=== PATIENT | female | born 1960 | race Caucasian/White ===

== ENCOUNTER 2016-06-23 13:18 | Emergency (ER) | payer MEDICAID ==
[2016-06-23] MEDS ORDERED: PHENAZOPYRIDINE 100 MG TABLET PO STA (14:08)
[2016-06-23] MEDS ORDERED: SULFAMETH/TRIMETH DS 800/160 MG TABLET PO STA (14:08)
[2016-06-23] MEDS ORDERED: PHENAZOPYRIDINE 100 MG TABLET PO ONE (14:12)
[2016-06-23] MEDS ORDERED: SULFAMETH/TRIMETH DS 800/160 MG TABLET PO ONE (14:12)
== END 2016-06-23 14:42 | disposition home or self-care (01) ==
DX: N30.00 Acute cystitis without hematuria (principal)
CPT/HCPCS: 51798; 81001; 87077; 87086; 87181; 99283; A9270

== ENCOUNTER 2017-10-11 15:29 | Outpatient (CLI) | payer MEDICAID | END 2017-10-11 15:30 | disposition critical access hospital (66) | LOC: EMS 15:29 | PROVIDERS: ATTEND Surgery | DX: S69.91XA Unspecified injury of right wrist, hand and finger(s), initial encounter (principal); S99.922A Unspecified injury of left foot, initial encounter; S81.011A Laceration without foreign body, right knee, initial encounter; W18.30XA Fall on same level, unspecified, initial encounter; Y93.01 Activity, walking, marching and hiking; Y92.838 Other recreation area as the place of occurrence of the external cause | CPT/HCPCS: A0425; A0429; A0999 ==

== ENCOUNTER 2017-10-11 16:17 | Emergency (ER) | payer MEDICAID ==
--- NOTE | 2017-10-11 17:03 | ED Physician Documentation ---
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 - Present Medications Home Medications: Ambulatory Orders Medication Instructions Recorded Confirmed Phenazopyridine [Pyridium] 200 mg PO TID #15 tablet 06/23/16 Sulfamethoxazole/Trimethoprim 1 each PO BID #14 tablet 06/23/16 [Bactrim Ds Tablet] - Allergies Allergies/Adverse Reactions: Allergies Allergy/AdvReac Type Severity Reaction Status Date / Time No Known Drug Allergies Allergy Verified 06/23/16 13:22 - Social History Does the pt smoke?: No Smoking Status: Never smoker Does the pt drink ETOH?: Yes Does the pt have substance abuse?: Yes - Immunizations Immunizations are current?: Yes Results - Vitals Vitals: Vital Signs - 24 hr 10/11/17 16:18 Temperature 36.5 C Heart Rate 86 Respiratory 20 Rate Blood Pressure 150/107 H O2 Saturation 100 Oxygen O2 Source Room air PD MEDICAL DECISION MAKING - Sepsis Event Vital Signs: Vital Signs - 24 hr 10/11/17 16:18 Temperature 36.5 C Heart Rate 86 Respiratory 20 Rate Blood Pressure 150/107 H O2 Saturation 100 Oxygen O2 Source Room air
--- NOTE | 2017-10-11 17:04 | ED Physician Documentation ---
PD HPI Fall - Stated complaint Stated Complaint: FOOT INJURY - Chief complaint Chief Complaint: Ext Problem - History obtained from History obtained from: Patient - History of Present Illness Mechanism of injury: Tripped, Lost balance Fall distance: Standing position (she struck left foot and fell to the right. Pain left lateral foot. Pain right little finger. Laceration of right knee. Deneis injury to chest/abd/head/neck.) Timing - onset: Today Injury(ies) location: Right Upper Extremity (little finger pain), Right Lower Extremity (knee lac), Left Lower Extremity (lateral foot). No: Head, Face, Neck , Chest, Abdomen Associated symptoms: No: LOC, AMS, Neck pain, Weakness, Paresthesias, Nausea / vomiting Worsens with: Movement, Palpation Similar symptoms before: Has not had sx before Recently seen: Not recently seen Review of Systems Constitutional: denies: Fever Nose: denies: Rhinorrhea / runny nose, Congestion Throat: denies: Sore throat Cardiac: denies: Chest pain / pressure Respiratory: denies: Dyspnea, Cough GI: denies: Abdominal Pain, Vomiting, Diarrhea, Bloody / black stool Neurologic: denies: Generalized weakness, Focal weakness, Numbness, Altered mental status, Headache, Head injury PD PAST MEDICAL HISTORY - Past Medical History Past Medical History: No Cardiovascular: None Respiratory: None : None Musculoskeletal: Scoliosis - Past Surgical History Past Surgical History: Yes 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 - Present Medications Home Medications: Ambulatory Orders Medication Instructions Recorded Confirmed Phenazopyridine [Pyridium] 200 mg PO TID #15 tablet 06/23/16 Sulfamethoxazole/Trimethoprim 1 each PO BID #14 tablet 06/23/16 [Bactrim Ds Tablet] HYDROcod/ACETAM 5/325 [[place] 5/325] 1 tab PO Q6H PRN #25 tablet 10/11/17 Naproxen [Naprosyn] 500 mg PO BID PRN #20 tablet 10/11/17 - Allergies Allergies/Adverse Reactions: Allergies Allergy/AdvReac Type Severity Reaction Status Date / Time No Known Drug Allergies Allergy Verified 06/23/16 13:22 - Social History Does the pt smoke?: No Smoking Status: Never smoker Does the pt drink ETOH?: Yes Does the pt have substance abuse?: Yes - Immunizations Immunizations are current?: Yes PD ED PE NORMAL - Vitals Vital signs reviewed: Yes - General General: Alert and oriented X 3, No acute distress, Well developed/nourished - HEENT HEENT: Atraumatic - Neck Neck: Supple, no meningeal sign, No bony TTP, No adenopathy - Cardiac Cardiac: RRR, No murmur - Respiratory Respiratory: Clear bilaterally, Other (no chestwall tenderness) - Abdomen Abdomen: Soft, Non tender - Back Back: No CVA TTP, No spinal TTP - Derm Derm: Normal color, Warm and dry - Extremities Extremities: Other (left lateral foot with swelling and tenderness at 5th MT base area. Ankel malleoli not tender. Right little finger tender at the base. No gross deformity and she can flex/extend slightly against resistance with some pain, but tendons feel intact. Right knee with laceration and some dirt in it. Lac to fatty tissue. Edges bruised some. ) - Neuro Neuro: Alert and oriented X 3, No motor deficit, No sensory deficit, Normal speech Eye Opening: Spontaneous Motor: Obeys Commands Verbal: Oriented GCS Score: 15 Results - Vitals Vitals: Vital Signs - 24 hr // 16:18 18:50 Temperature 36.5 C 36.6 C Heart Rate 86 81 Respiratory 20 18 Rate Blood Pressure 150/107 H 168/89 H O2 Saturation 100 100 Oxygen O2 Source Room air - Rads (name of study) left foot Radiology: Prelim report reviewed (proximal 5th MT small fracture, nondisplaced. ) right hand Radiology: Prelim report reviewed (little finger proximal phalanx transverse fracture without displacemnt) Procedures - Laceration (location) right infraptellar area Length in cm: 3 Wound type: Flap (v-shaped), Into subcut fat, Contaminated Neurovascular status: Sensory intact, Motor intact, Vascular intact Tendon involvement: Tendon intact (good extension of knee and no bony tenderness. no effusion.) Anesthesia: Lidocaine 2%, Marcaine 0.5% with epi Wound Preparation: Irrigated copiously NS, To the base, FB identified, FB removed (dirt particles), Wound edges modified Skin layer closure: Nylon, Interrupted, Size #-0 - enter number (4) Other: Patient tolerated well, No complications, Neurovascular intact, Dressing applied, Tetanus UTD Complexity: Simple - Splint (location) right finger Splint applied by: Tech Type of splint: Ulnar gutter (short one to better stabilize the little finger, which hurt with any movement. Splint was applied good.) Other: Patient tolerated well, No complications PD MEDICAL DECISION MAKING - ED course Complexity details: considered differential (several injuries with the knee lac , proxim 5th MT fracture and finger fracture. ), d/w patient - Sepsis Event Vital Signs: Vital Signs - 24 hr 10/11/17 10/11/17 16:18 18:50 Temperature 36.5 C 36.6 C Heart Rate 86 81 Respiratory 20 18 Rate Blood Pressure 150/107 H 168/89 H O2 Saturation 100 100 Oxygen O2 Source Room air Departure - Departure Disposition: 01 Home, Self Care Clinical Impression: Accidental fall Qualifiers: Encounter type: initial encounter Qualified Code(s): W19.XXXA - Unspecified fall, initial encounter Knee laceration Qualifiers: Encounter type: initial encounter Laterality: right Qualified Code(s): S81.011A - Laceration without foreign body, right knee, initial encounter Fracture of phalanx of little finger Qualifiers: Encounter type: initial encounter Fracture type: closed Phalanx: proximal Fracture alignment: nondisplaced Laterality: right Qualified Code(s): S62.646A - Nondisplaced fracture of proximal phalanx of right little finger, initial encounter for closed fracture Metatarsal fracture Qualifiers: Encounter type: initial encounter Metatarsal bone: fifth Fracture type: closed Fracture alignment: nondisplaced Laterality: left Qualified Code(s): S92.355A - Nondisplaced fracture of fifth metatarsal bone, left foot, initial encounter for closed fracture Condition: Stable Record reviewed to determine appropriate education?: Yes Instructions: ED Fx Finger Closed, ED Fx Foot, ED Laceration Ext Sutr Stap Tape Follow-Up: [facility] [Provider Group] Prescriptions: HYDROcod/ACETAM 5/325 [Avant 5/325] 1 tab PO Q6H PRN #25 tablet PRN Reason: Pain Naproxen [Naprosyn] 500 mg PO BID PRN #20 tablet PRN Reason: Pain Comments: It is okay to wash and shower. Clean off the wound twice a day with soap and water, or peroxide and water. Apply some antibiotic ointment to it to keep it moist. Also to watch for signs of infection such as purulence, redness or increasing pain. Return to your primary care or the ER at the specified time for suture removal. Suture removal in 12-14 days. Keep the splint on the finger and hand to protect it. You can remove it temporarily for cleaning and then re-apply it. Use the postop shoe for less motion at the foot to allow healing of that fracture as well. Follow-up with orthopedics in about a week, call tomorrow for an appointment. Naproxen twice daily for pain and inflammation. Ice to the areas that hurt periodically as well. Add hydrocodone if needed for pain. Discharge Date/Time: 10/11/17 19:15
[2017-10-11] MEDS ORDERED: LIDOCAINE-EPINEPH-TETRACAINE 3 ML SYRINGE TOP ONE (17:08)
--- NOTE | 2017-10-11 17:19 | XRAY Report ---
Procedure Date: 10/11/2017 Accession Number: [id number] / [id number] Procedure: XR - Foot 3 View LT CPT Code: FULL RESULT: EXAM: LEFT FOOT RADIOGRAPHY EXAM DATE: 10/11/2017 05:12 PM. CLINICAL HISTORY: Left foot injury. COMPARISON: None. TECHNIQUE: 3 views. FINDINGS: Bones: There is a nondisplaced fracture extending transversely across the proximal fifth metatarsal. No other focal bony abnormality. Joints: Normal. No subluxations. Soft Tissues: There is mild soft tissue swelling of the lateral midfoot. IMPRESSION: Nondisplaced proximal fifth metatarsal fracture. RADIA
--- NOTE | 2017-10-11 17:23 | XRAY Report ---
Procedure Date: 10/11/2017 Accession Number: [id number] / [id number] Procedure: XR - Finger(s) RT CPT Code: FULL RESULT: EXAM: RIGHT FIFTH DIGIT RADIOGRAPHY EXAM DATE: 10/11/2017 05:12 PM. CLINICAL HISTORY: 5th finger injury. COMPARISON: None. TECHNIQUE: 3 views. FINDINGS: Bones: There is an oblique nondisplaced fracture of the fifth proximal phalanx. Joints: Normal. No subluxations. Soft Tissues: There is soft tissue swelling of the fifth digit. IMPRESSION: Nondisplaced fifth proximal phalanx fracture. RADIA
[2017-10-11] MEDS ORDERED: LIDOCAINE MPF 1%-EPI 1:200000 30 ML VIAL SUBQ STA (17:34)
[2017-10-11] MEDS ORDERED: LIDOCAINE-EPINEPH-TETRACAINE 3 ML SYRINGE TOP STA (17:34)
[2017-10-11] MEDS ORDERED: IBUPROFEN 600 MG TABLET PO STA (18:03)
[2017-10-11] MEDS ORDERED: HYDROcod/ACETAM 5/325 MG TABLET PO STA (18:03)
[2017-10-11] MEDS ORDERED: ONDANSETRON ODT 4 MG TABLET TL STA (18:03)
[2017-10-11] MEDS ORDERED: MUPIROCIN 2% OINT 1 GM TOP STA (18:31)
[2017-10-11 18:50] VITALS: BP 168/89
== END 2017-10-11 19:15 | disposition home or self-care (01) ==
LOC: EDUNIT# → ED 16:17
DX: S62.646A Nondisplaced fracture of proximal phalanx of right little finger, initial encounter for closed fracture (principal); S92.355A Nondisplaced fracture of fifth metatarsal bone, left foot, initial encounter for closed fracture; S81.011A Laceration without foreign body, right knee, initial encounter; W01.0XXA Fall on same level from slipping, tripping and stumbling without subsequent striking against object, initial encounter
CPT/HCPCS: 12002; 29125; 73140; 73630; 99283; A9270; Q0162

== ENCOUNTER 2017-11-04 10:58 | Emergency (ER) | payer MEDICAID ==
[2017-11-04 11:10] VITALS: BP 151/96
--- NOTE | 2017-11-04 11:47 | ED Physician Documentation ---
History of Present Illness - Stated complaint Stated Complaint: R KNEE SUTURE REMOVAL - Chief complaint Chief Complaint: Ext Problem - Additonal information Additional information: hx from pt 57 f fall with knee lac October 11 sutured fup ortho a week later for other injuries and wound noted to be infected and pt started on ab now nearly a month later to ED for suture removal painful still Review of Systems Constitutional: denies: Fever Skin: reports: Laceration (s) Immunocompromised: denies: Immunocompromised PD PAST MEDICAL HISTORY - Past Medical History Past Medical History: Yes Cardiovascular: None Respiratory: None : None Musculoskeletal: Scoliosis - Past Surgical History Past Surgical History: Yes 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 - Present Medications Home Medications: Ambulatory Orders Medication Instructions Recorded Confirmed Phenazopyridine [Pyridium] 200 mg PO TID #15 tablet 06/23/16 Sulfamethoxazole/Trimethoprim 1 each PO BID #14 tablet 06/23/16 [Bactrim Ds Tablet] HYDROcod/ACETAM 5/325 [[place] 5/325] 1 tab PO Q6H PRN #25 tablet 10/11/17 Naproxen [Naprosyn] 500 mg PO BID PRN #20 tablet 10/11/17 - Allergies Allergies/Adverse Reactions: Allergies Allergy/AdvReac Type Severity Reaction Status Date / Time No Known Drug Allergies Allergy Verified 06/23/16 13:22 - Social History Does the pt smoke?: No Smoking Status: Never smoker Does the pt drink ETOH?: Yes Does the pt have substance abuse?: Yes - Immunizations Immunizations are current?: Yes - POLST Patient has POLST: No PD ED PE NORMAL - Vitals Vital signs reviewed: Yes - Extremities Extremities: Other (R knee : wound has dehusced despite sutures and there is granulation tissue and tenderness, no discharge upon suture removal, no streaking) Results - Vitals Vitals: Vital Signs - 24 hr 11/04/17 11:07 Temperature 36.8 C Heart Rate 86 Respiratory 18 Rate Blood Pressure 151/96 H O2 Saturation 98 Oxygen O2 Source Room air Procedures - Suture/staple Removal (location) knee Suture/staple removal: # sutures (7), Infected, Dehiscence PD MEDICAL DECISION MAKING - ED course ED course: tdap UTD - Sepsis Event Vital Signs: Vital Signs - 24 hr 11/04/17 11:07 Temperature 36.8 C Heart Rate 86 Respiratory 18 Rate Blood Pressure 151/96 H O2 Saturation 98 Oxygen O2 Source Room air Departure - Departure Disposition: 01 Home, Self Care Clinical Impression: Encounter for removal of sutures, Wound dehiscence, Wound infection Condition: Good Instructions: Infec Wound Recognize Tx Follow-Up: [facility] [Provider Group] [facility] [Provider Group] Comments: The wound got infected and did not heal well Now the wound will have to heal from the base up. It should get better faster now that the sutures are out Continue the antibiotics Wash the wound well every day and apply antibiotic ointment and a fresh dressing Follow up with orthopedics clinic or [facility] on Wednesday for a wound check
[2017-11-04] MEDS ORDERED: LIDOCAINE-EPINEPH-TETRACAINE 3 ML SYRINGE TOP STA (11:50)
== END 2017-11-04 11:57 | disposition home or self-care (01) ==
LOC: ED 10:58
DX: Z48.02 Encounter for removal of sutures (principal); T81.30XA Disruption of wound, unspecified, initial encounter; L08.9 Local infection of the skin and subcutaneous tissue, unspecified
CPT/HCPCS: 99282; 99283

== ENCOUNTER 2019-01-09 10:47 | Emergency (ER) | payer MEDICAID ==
[2019-01-09 10:57] VITALS: BP 147/97
--- NOTE | 2019-01-09 11:58 | ED Physician Documentation ---
PD HPI HEENT - Stated complaint Stated Complaint: RT EAR DISCHARGE - Chief complaint Chief Complaint: Heent - History obtained from History obtained from: Patient - History of Present Illness Timing - onset: Other (Healthy 58-year-old woman has had muffled hearing in the right ear for about a week and then drainage for the last couple of days from the right ear. No fevers. She has had some congestion but no cough.) Review of Systems Constitutional: denies: Fever, Chills Ears: reports: Loss of hearing, Drainage/discharge. 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 - Present Medications Home Medications: Ambulatory Orders Medication Instructions Recorded Confirmed Sulfamethoxazole/Trimethoprim 1 each PO BID #14 tablet 06/23/16 11/09/17 [Bactrim Ds Tablet] HYDROcod/ACETAM 5/325 [Nursery 5/325] 1 tab PO Q6H PRN #25 tablet 10/11/17 11/09/17 Naproxen [Naprosyn] 500 mg PO BID PRN #20 tablet 10/11/17 11/09/17 Amox/Clav 875/125 [Augmentin] 1 each PO Q12H #20 tablet 01/09/19 Ofloxacin 5 drops OT BID 7 Days #1 bot 01/09/19 - Allergies Allergies/Adverse Reactions: Allergies Allergy/AdvReac Type Severity Reaction Status Date / Time No Known Drug Allergies Allergy Verified 01/09/19 10:54 - Social History Does the pt smoke?: No Smoking Status: Former smoker Does the pt drink ETOH?: Yes Does the pt have substance abuse?: Yes - Immunizations Immunizations are current?: Yes - POLST Patient has POLST: No PD ED PE NORMAL - Vitals Vital signs reviewed: Yes - General General: Alert and oriented X 3, No acute distress - HEENT HEENT: Other (Left TM is normal. She has right otitis media with perforation) - Neck Neck: Supple, no meningeal sign, No bony TTP - Derm Derm: No rash - Neuro Neuro: Alert and oriented X 3, Normal speech Results - Vitals Vitals: Vital Signs - 24 hr 01/09/19 10:54 Temperature 36.3 C L Heart Rate 89 Respiratory 15 Rate Blood Pressure 147/97 H O2 Saturation 100 Oxygen O2 Source Room air Departure - Departure Disposition: 01 Home, Self Care Clinical Impression: Perforation of right tympanic membrane due to otitis media Condition: Good Record reviewed to determine appropriate education?: Yes Instructions: ED Rupture Eardrum Infec Prescriptions: Amox/Clav 875/125 [Augmentin] 1 each PO Q12H #20 tablet Ofloxacin 5 drops OT BID 7 Days #1 bot Comments: As discussed the need to follow-up with an ear nose and throat surgeon, the closest is in [place], the phone number is [phone]. Call today for an appointment in about a week. Return for new worsening symptoms.
== END 2019-01-09 12:14 | disposition home or self-care (01) ==
LOC: ED 10:47
DX: H66.91 Otitis media, unspecified, right ear (principal); H72.91 Unspecified perforation of tympanic membrane, right ear; Z87.891 Personal history of nicotine dependence
CPT/HCPCS: 99282; 99283

== ENCOUNTER 2020-06-21 14:59 | Emergency (ER) | payer MEDICAID ==
--- NOTE | 2020-06-21 15:13 | ED Physician Documentation ---
PD HPI FOCAL NEURO - Stated complaint Stated Complaint: LT SIDE WEAKNESS - Chief complaint Chief Complaint: Neuro - History obtained from History obtained from: Patient - History of Present Illness Timing - onset: Yesterday Timing - duration: Hours (22) Timing - details: Gradual onset Severity of deficit: Moderate Weakness: Face, Arm, Hand, Leg, Foot, Left Numbness: No: Face, Arm, Hand, Leg, Foot, Right, Left Associated symptoms: No: Headache, Nausea / vomiting, Seizure, Syncope, Fall, Head injury, Chest pain, Neck pain, Back pain Contributing factors: negative: Anticoagulated, Vascular dz, Atrial fibrillation, Prosthetic heart valve Baseline status: positive: A&OX3, ambulatory, indep Similar symptoms before: Has not had sx before - Additional information Additional information: 59-year-old female presents to the emergency department with left leg weakness that started yesterday at about 5 PM. This has progressed to left arm weakness this morning and now left facial weakness this afternoon. Her and her live on a boat and they had to take another boat to the store to be evaluated. She states that she has no medical history and does not take any medications. No history of acute coronary syndrome or strokes in the past. Nothing makes it better or worse. No headache. No trauma. No vision changes. No chest pain. No shortness of breath. 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 - Present Medications Home Medications: Ambulatory Orders Medication Instructions Recorded Confirmed No Known Home Medications 06/21/20 06/21/20 - Allergies Allergies/Adverse Reactions: Allergies Allergy/AdvReac Type Severity Reaction Status Date / Time No Known Drug Allergies Allergy Verified 06/21/20 15:02 - Social History Does the pt smoke?: No Smoking Status: Former smoker Does the pt drink ETOH?: Yes Does the pt have substance abuse?: Yes - Immunizations Immunizations are current?: Yes - POLST Patient has POLST: No PD ED PE NORMAL - Vitals Vital signs reviewed: Yes - General General: Alert and oriented X 3, No acute distress, Well developed/nourished - HEENT HEENT: Atraumatic, PERRL, EOMI, Ears normal, Moist mucous membranes - Neck Neck: Supple, no meningeal sign, No bony TTP, No bruit - Cardiac Cardiac: RRR, Strong equal pulses - Respiratory Respiratory: No respiratory distress, Clear bilaterally - Abdomen Abdomen: Soft, Non tender, Non distended - Back Back: No spinal TTP - Derm Derm: Warm and dry, No rash - Extremities Extremities: No edema, No calf tenderness / cord - Neuro Neuro: Alert and oriented X 3, No sensory deficit, Other (See NIH stroke scale for motor deficits) Eye Opening: Spontaneous Motor: Obeys Commands Verbal: Oriented GCS Score: 15 - Psych Psych: Normal mood, Normal affect NIHSS - Time Time: 15:20 - Level of Consciousness Level of consciousness: (0) Alert, Keenly responsive LOC Questions: (0) Answers both Q's correct LOC Commands: (0) Performs both correctly - Gaze Best Gaze: (0) Normal - Visual Visual: (0) No loss - Facial Palsy Facial Palsy: (2) Partial paralysis - Motor Arms (both separate) Motor Arm (right): (0) No drift Motor Arm (left): (1) Drift - Motor Legs (both separate) Motor Leg (right): (0) No drift Motor Leg (left): (2) Some effort against gravity - Limb Ataxia Limb Ataxia: (1) Present in 1 limb - Sensory Sensory: (0) Normal - Best Language Best Language: (0) No aphasia - Dysarthria Dysarthria: (0) Normal - Extinction and Inattention (formally neg Extinction and inattention: (0) No abnormality - Total Score/Results Total Score/Result: 6 Results - Vitals Vitals: Vital Signs - 24 hr 06/21/20 06/21/20 06/21/20 15:02 15:25 15:35 Temperature 36.5 C Heart Rate 94 93 92 Respiratory 16 18 22 Rate Blood Pressure 138/74 H 135/88 H 151/100 H O2 Saturation 96 96 93 06/21/20 06/21/20 06/21/20 16:13 16:35 17:31 Temperature Heart Rate 95 95 94 Respiratory 19 20 26 H Rate Blood Pressure 126/89 H 146/97 H 124/99 H O2 Saturation 95 95 97 06/21/20 06/21/20 18:12 18:43 Temperature Heart Rate 87 85 Respiratory 18 18 Rate Blood Pressure 152/100 H 163/90 H O2 Saturation 98 95 Oxygen O2 Source Room air - Labs Labs: Laboratory Tests 06/21/20 06/21/20 06/21/20 15:17 15:17 15:17 WBC 10.3 RBC 5.12 Hgb 16.3 H Hct 47.3 H MCV 92.4 MCH 31.8 H MCHC 34.5 RDW 13.0 Plt Count 230 MPV 10.4 Neut # (Auto) 6.2 Lymph # (Auto) 3.2 [place] # (Auto) 0.7 Eos # (Auto) 0.2 Baso # (Auto) 0.0 Absolute Nucleated RBC 0.00 Nucleated RBC % 0.0 PT 12.1 INR 1.1 APTT 26.2 Sodium 140 Potassium 3.7 Chloride 105 Carbon Dioxide 23 Anion Gap 12.0 BUN 23 H Creatinine 0.8 Estimated GFR (MDRD) 73 L Glucose 109 H Calcium 10.0 Total Bilirubin 0.7 AST 24 ALT 20 Alkaline Phosphatase 99 Total Protein 8.8 H Albumin 4.8 Globulin 4.0 Albumin/Globulin Ratio 1.2 - Rads (name of study) CT angiogram head Radiology: Prelim report reviewed, EMP read contemporaneously, See rad report CT angiogram neck Radiology: Prelim report reviewed, EMP read contemporaneously, See rad report PD MEDICAL DECISION MAKING - ED course Complexity details: reviewed results, re-evaluated patient, considered differential, d/w patient ED course: 59-year-old female presents to the emergency department with left-sided weakness since yesterday, appears to be a completed stroke. Discussed the case with Dr. Villafana, hospitalist who recommends transfer as we do not have MRI or echo available this weekend. Discussed the case with Dr. Warren, hospitalist at [facility] in [place] who graciously accepts in transfer. COBRA forms completed. This document was made in part using voice recognition software. While efforts are made to proofread this document, sound alike and grammatical errors may occur. CT angio head: IMPRESSION: No acute intracranial abnormality is seen. No abnormal enhancement can be seen. No significant intracranial arterial abnormalities are seen. Remote right basal ganglia infarction. CT angio neck: IMPRESSION: Limited study demonstrating no hemodynamically significant stenosis of the neck arteries. 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 The estimate of stenosis included in the report of the imaging study was calculated using the NASCET method Departure - Departure Disposition: 02 Transfer Acute Care [facility] Clinical Impression: Cerebrovascular accident (CVA) Qualifiers: CVA mechanism: unspecified Qualified Code(s): I63.9 - Cerebral infarction, unspecified Condition: Stable
[2020-06-21 15:23] LABS: BASOPHILS % (AUTO) 0.4 %; EOSINOPHILS # (AUTO) 0.2 10^3/uL (0.0-0.7); EOSINOPHILS % (AUTO) 1.6 %; HCT - HEMATOCRIT 47.3 % (37.0-47.0); HGB - HEMOGLOBIN 16.3 g/dL (12.0-16.0); LYMPHOCYTES # (AUTO) 3.2 10^3/uL (1.5-3.5); LYMPHOCYTES % (AUTO) 30.9 %; MEAN CORPUSCULAR HEMOGLOBIN 31.8 pg (27.0-31.0); MEAN CORPUSCULAR HGB CONC 34.5 g/dL (32.0-36.0); MEAN CORPUSCULAR VOLUME 92.4 fL (81.0-99.0); MEAN PLATELET VOLUME 10.4 fL (7.9-10.8); MONOCYTES # (AUTO) 0.7 10^3/uL (0.0-1.0); MONOCYTES % (AUTO) 6.5 %; NEUTROPHILS # (AUTO) 6.2 10^3/uL (1.5-6.6); NEUTROPHILS % (AUTO) 60.3 %; PLT - PLATELET COUNT 230 10^3/uL (130-450); RED BLOOD COUNT 5.12 10^6/uL (4.20-5.40); WHITE BLOOD COUNT 10.3 x10^3/uL (4.8-10.8)
[2020-06-21 15:28] LABS: INR 1.1 (0.8-1.2); PT - PROTHROMBIN TIME 12.1 secs (9.9-12.6)
[2020-06-21] MEDS ORDERED: IOVERSOL 320 100 ML VIAL IVP ONE ×2 (15:29→16:06)
[2020-06-21 15:36] LABS: PARTIAL THROMBOPLASTIN TIME 26.2 secs (24.9-33.3)
[2020-06-21 15:37] LABS: ALBUMIN 4.8 g/dL (3.2-5.5); ALBUMIN/GLOBULIN RATIO 1.2 (1.0-2.2); BILIRUBIN,TOTAL 0.7 mg/dL (0.2-1.0); CREATININE 0.8 mg/dL (0.4-1.0); POTASSIUM 3.7 mmol/L (3.5-5.0); TOTAL PROTEIN 8.8 g/dL (6.7-8.2)
--- NOTE | 2020-06-21 16:24 | CT Report ---
PROCEDURE: ANGIO HEAD W/WO INDICATIONS: L sided weakness CONTRAST: IV CONTRAST: Optiray 320 ml: 80 PO CONTRAST: *NO PO CONTRAST TECHNIQUE: Precontrast 4.5 mm thick angled axial sections acquired from the foramen magnum to the vertex. Afte r the administration of intravenous contrast, 1 mm thick sections acquired through the [place] of [place] is. Postcontrast 4.5 mm thick sections then re-acquired from the foramen magnum to the vertex. 3-di mensional gmfnziy-lflfctmcn-ydtjiifcaj (MIP) and/or volume rendering reformats were acquired of the c entral intracranial vasculature. For radiation dose reduction, the following was used: automated ex posure control, adjustment of mA and/or kV according to patient size. COMPARISON: Correlation is made with the accompanying neck CT angiogram, 06/21/2020. FINDINGS: Image quality: Motion artifact is noted. Anterior circulation: Intracranial internal carotid arteries demonstrate generalized calcification a nd irregularity, with approximately 50% narrowing seen on each side. The flow within the paired anter ior cerebral arteries is normal and symmetric. The flow within the middle cerebral arteries is ciro l and symmetric. The anterior communicating artery is seen. No aneurysms are seen. Posterior circulation: Visualized portions of the vertebral arteries demonstrate normal caliber, and join to form a normal appearing basilar artery. Flow within the posterior cerebral arteries is norm al and symmetric. No aneurysms are seen. CSF spaces: Ventricles are normal in size and shape. Basal cisterns are patent. No extra-axial flu id collections. Brain: There are multiple focal infarction can be seen involving the right basal ganglia, as on seri es 4 images 15 through 18. No midline shift. No intracranial bleeds or masses. Lafleur-white matter in terface appears intact. Skull and face: Calvarium and facial bones appear intact, without suspicious lesions. Sinuses: Visualized sinuses and mastoids are clear. Bilateral brett bullosa can be seen. Mild to mo derate rightward nasal septal deviation can be seen. IMPRESSION: No acute intracranial abnormality is seen. No abnormal enhancement can be seen. No significant intracranial arterial abnormalities are seen. Remote right basal ganglia infarction. Reviewed by: Salvador Smith MD on 06/21/2020 3:23 PM ERIC Approved by: Salvador Smith MD on 06/21/2020 3:23 PM AKDIONTE Station ID: [id number]
--- NOTE | 2020-06-21 16:27 | CT Report ---
PROCEDURE: ANGIO NECK W INDICATIONS: L sided weakness CONTRAST: IV CONTRAST: Optiray 320 ml: 80 PO CONTRAST: *NO PO CONTRAST TECHNIQUE: After the administration of intravenous contrast, 1.5 mm axial sections acquired from the aortic arch to the [place] of [place]. Coronal 3-D maximum intensity projection (MIP) and/or volume rendering ref ormats were then performed. For radiation dose reduction, the following was used: automated exposur e control, adjustment of mA and/or kV according to patient size. COMPARISON: Correlation is made with the accompanying head CT angiogram, 06/21/2020. FINDINGS: Image quality: This study is limited by bolus timing. Carotid system: The great vessels demonstrate a conventional anatomy as they arise from the aortic a rch. The origins of the common carotid arteries appear patent. The common carotid arteries demonstr ate normal calibers and courses. The bifurcation regions demonstrate atherosclerotic irregularity an d calcification, left worse than right. There is 30-40% narrowing seen on the right. No significant s tenosis can be seen involving the left carotid bifurcation. Posterior circulation: The origins of the vertebral arteries appear patent. The more superior porti ons of the vertebral arteries demonstrate normal course and caliber. The left vertebral artery is do minant to the right. Soft tissues: Visualized neck soft tissues demonstrate no suspicious abnormalities. The thyroid gla nd is normal in size. Bones: No suspicious bony lesions. Degenerative changes are seen throughout. Likely congenital fusio ns can be seen at C2-C3 and at C5-C6. IMPRESSION: Limited study demonstrating no hemodynamically significant stenosis of the neck arteries. 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 The estimate of stenosis included in the report of the imaging study was calculated using the NASCET method Reviewed by: Salvador Smith MD on 06/21/2020 3:25 PM ERIC Approved by: Salvador Smith MD on 06/21/2020 3:25 PM ERIC Station ID: [id number]
[2020-06-21 19:15] LABS: B. PARAPERTUSSIS- RESP PCR PAN NOT DETECTED; B. PERTUSSIS- RESP PCR PANEL NOT DETECTED; C. PNEUMONIAE- RESP PCR PANEL NOT DETECTED; CORONAVIRUS 229E-RESP PCR NOT DETECTED; CORONAVIRUS HKU1-RESP PCR NOT DETECTED; CORONAVIRUS NL63-RESP PCR NOT DETECTED; CORONAVIRUS OC43-RESP PCR NOT DETECTED; HUMAN METAPNEUMOVIRUS NOT DETECTED; INFLUENZA A- RESP PCR PANEL NOT DETECTED; INFLUENZA B - RESP PCR PANEL NOT DETECTED; M. PNEUMONIAE- RESP PCR PANEL NOT DETECTED; PARAINFLUENZA VIRUS 1 NOT DETECTED; PARAINFLUENZA VIRUS 2 NOT DETECTED; PARAINFLUENZA VIRUS 3 NOT DETECTED; PARAINFLUENZA VIRUS 4 NOT DETECTED; RHINOVIRUS/ENTEROVIRUS NOT DETECTED; RSV- RESP PCR PANEL NOT DETECTED; SARS-CoV-2 -RESP PCR PANEL NOT DETECTED
[2020-06-21 19:21] VITALS: BP 160/82
--- NOTE | 2020-06-21 19:23 | ED Physician Documentation ---
ED Addendum - Addendum Addendum: 06/21/20 19:22 EKG at 1913 shows heart rate of 85, sinus rhythm, nonspecific ST changes, T wave inversion in III. Normal axis. Normal IN interval. Normal QRS.
== END 2020-06-21 19:21 | disposition short-term general hospital (02) ==
LOC: ED 14:59
DX: I63.9 Cerebral infarction, unspecified (principal); R29.706 NIHSS score 6; Z87.891 Personal history of nicotine dependence; Z20.822 Contact with and (suspected) exposure to COVID-19
CPT/HCPCS: 0202U; 36415; 70496; 70498; 80053; 85025; 85610; 85730; 93005; 99285; Q9967

== ENCOUNTER 2020-06-21 19:24 | Outpatient (CLI) | payer MEDICAID | END 2020-06-21 19:25 | disposition short-term general hospital (02) | LOC: EMS 19:24 | PROVIDERS: ATTEND Emergency Medicine | DX: I63.9 Cerebral infarction, unspecified (principal) | CPT/HCPCS: A0425; A0428 ==